=== PATIENT | male | born 1950 | race African-American/Black ===

== ENCOUNTER → 2021-02-27 | Day surgery (SDC) | payer MEDICARE ==
[~2021-02-27] MED LIST: AMLODIPINE BESYL5 MG PO; FOLIC ACID PO; METHOTREXA25 MG/1 ML SC; MIDAZOLAM HCL 2 MG/2 ML VIAL ONE; OMEGA 3 PO; OMEPRAZOLE40 MG PO; OR PHACO EYE KIT ONE; PREOP PHACO EYE KIT ONE; PROBIOTIC & AC1 EACH PO; VITAMIN B12 PO; VITAMIN C1000 MG PO; VITAMIN D PO; ZINC PO
[2021-02-27 13:17] VITALS: BP 149/80
== END | disposition home or self-care (01) ==
LOC: OR 11:05
PROVIDERS: ATTEND Ophthalmology
DX: H25.11 Age-related nuclear cataract, right eye (principal); I10 Essential (primary) hypertension; M06.9 Rheumatoid arthritis, unspecified; K21.9 Gastro-esophageal reflux disease without esophagitis
CPT/HCPCS: 66984; J2250; V2632

== ENCOUNTER → 2021-03-13 | Day surgery (SDC) | payer MEDICARE ==
[~2021-03-13] MED LIST changes: +FENTANYL CITRATE/PF 100MCG/2 ML INJ ONE
[2021-03-13 14:05] VITALS: BP 144/79
== END | disposition home or self-care (01) ==
LOC: OR 10:45
PROVIDERS: ATTEND Ophthalmology
DX: H25.12 Age-related nuclear cataract, left eye (principal); I10 Essential (primary) hypertension; K21.9 Gastro-esophageal reflux disease without esophagitis; Z79.899 Other long term (current) drug therapy
CPT/HCPCS: 66984; J2250; J3010